=== PATIENT | male | born 1985 | race African-American/Black ===

== ENCOUNTER 2016-09-27 10:17 | Emergency (ER) | payer SELFPAY ==
[~2016-09-27] VITALS: Ht 182.9 cm; Wt 75.0 kg
[2016-09-27] MEDS ORDERED: ELVI1TAB PO (10:21)
[2016-09-27 10:25] VITALS: BP 136/83
== END 2016-09-27 15:27 | disposition left against medical advice (07) ==
LOC: EMS 10:19
DX: R51 Headache (principal); Z53.21 Procedure and treatment not carried out due to patient leaving prior to being seen by health care provider